=== PATIENT | female | born 1970 | race Caucasian/White ===

== ENCOUNTER 2025-06-03 02:07 | Emergency (ER) | payer MEDICAID, SELFPAY ==
[2025-06-03] VITALS (7 sets, daily range): BP systolic 104–149; BP diastolic 68–97; PULSE 90–101; RESP 17–18; TEMP 36.3–36.9; O2SAT 96–98; BMI 35.0
--- NOTE | 2025-06-03 02:19 | EKG_ITS ---
[facility] Test Date: 2025-06-03 Pat Name: CHILO BECKMAN Department: Room: - Gender: Female Senior Quality Manager: : 1970 Requested By: ED Temporary Provider Order Number: [id number] Reading MD: ED Temporary Provider Measurements Intervals [place] Rate: 93 P: 53 MI: 161 QRS: -17 QRSD: 90 T: 35 QT: 336 QTc: 419 Interpretive Statements SINUS RHYTHM MINIMAL ST DEPRESSION [0.025+ mV ST DEPRESSION] Compared to ECG 11/10/2019 09:25:52 ST (T wave) deviation now present /store/S0/[id number].pdf
--- NOTE | 2025-06-03 02:33 | PC.NURSE ---
PT STARTED TO RAISE VOICE AT RN FOR NOT GETTING THE IV QUICK ENOUGH. RN STATED SHE WAS LOOKING AND TRYING TO FEEL FOR A VEIN. PT STARTED TO RAISE VOICE TO RN THAT IT WOULDVE BEEN ALREADY. THIS RN STATES THAT SHE WAS STILL LOOKING. PT STATED DONT GIVE ME AN ATTITUDE . THIS RN CLARIFED THAT SHE WAS NOT GIVING THE PT AN ATTITUDE. PT PROCEED TO ASK FOR RN NAME. THIS RN GAVE PT HER NAME. IV WAS INSTERED
--- NOTE | 2025-06-03 02:37 | XR_ITS ---
Examination: AP chest single view Technique one AP portable semiupright chest single view Date and time: June 03, 2025, 0244 hours INDICATIONS: Shortness of breath chest pain beginning today. FINDINGS: Normal heart size The lungs are clear. The osseous structures are intact IMPRESSION: No active disease
[2025-06-03 03:02] LABS: Basophils # (Auto) 0.1 Thou/mm3 (0.0-0.2); Basophils % (Auto) 1 % (0-2.5); Eosinophils # (Auto) 0.3 Thou/mm3 (0.0-0.5); Eosinophils % (Auto) 5 % (0-10); Hematocrit 40.4 % (36.0-46.0); Hemoglobin 13.6 g/dL (12.0-16.0); Immature Granulocytes Auto 0.03 Thou/mm3 (0.00-0.00); Lymphocytes # (Auto) 2.0 Thou/mm3 (1.0-4.8); Lymphocytes % (Auto) 29 % (10-50); Mean Corpuscular HGB Conc 33.7 g/dl (31.0-37.0); Mean Corpuscular Hemoglobin 30.7 pg (25.0-35.0); Mean Corpuscular Volume 91 fL (80-100); Monocytes # (Auto) 0.7 Thou/mm3 (0.0-0.8); Monocytes % (Auto) 10 % (0-12); Neutrophils # (Auto) 3.9 Thou/mm3 (1.8-7.7); Neutrophils % (Auto) 55 % (37-80); Nucleated Red Blood Cell # 0.00 Thou/mm3 (0.00-0.00); Nucleated Red Blood Cell % 0 /100 WBC (0); Platelet Count 339 Thou/mm3 (140-440); RDW Standard Deviation 41.9 fL (36.4-46.3); Red Blood Count 4.43 Miln/mm3 (4.00-5.20); White Blood Count 7.1 Thou/mm3 (3.6-11.0)
[2025-06-03 03:24] LABS: Alanine Aminotransferase < 7 U/L (10-49); Albumin, Serum 4.0 gm/dL (3.5-5.0); Albumin/Globulin Ratio 1.4 (1.2-2.2); Alkaline Phosphatase 106 U/L (46-116); Anion Gap 8 (7-16); Aspartate Amino Transferase 20 U/L (0-34); BUN/Creatinine Ratio 16 Ratio (12-20); Bilirubin,Total 0.3 mg/dL (0.3-1.2); Blood Urea Nitrogen 13 mg/dL (9-23); Calcium 9.6 mg/dL (8.3-10.6); Calcium (Corrected) 9.6 mg/dL (8.5-10.1); Carbon Dioxide 29.3 mMol/L (20.0-31.0); Chloride 102 mMol/L (98-107); Creatinine (Component) 0.8 mg/dL (0.6-1.3); Estimated Creatinine Clearance 85.5 mL/min (>60); Globulin 2.9 gm/dL (2.3-3.5); Glucose 87 mg/dL (74-106); Osmolality,Calculated 276 (275-295); Potassium 4.8 mMol/L (3.4-5.1); Sodium 139 mMol/L (136-145); Total Protein 6.9 gm/dL (5.7-8.2); Troponin I < 0.002 ng/mL (0.0-0.045); eGFR > 60 See Note
[2025-06-03 04:20] LABS: B-Type Natriuretic Peptide < 20 pg/mL (0-100)
[2025-06-03 06:41] LABS: Collection Type, Urine Clean Catch
[2025-06-03 06:53] LABS: Bacteria,Urine Rare; Bilirubin,Urine Negative (Negative); Blood,Urine Negative (Negative); Clarity,Urine Turbid (Clear/Hazy); Color,Urine Yellow (Lt Yel-Yel); Glucose, Urine Negative (Negative); Ketones,Urine Negative (Negative); Leukocyte Esterase,Urine Positive (Negative); Nitrite,Urine Negative (Negative); PH,Urine 6.5 (5.0-7.0); Protein,Urine Negative (Neg - Trace); RBC,Urine 6 /hpf (0-3); Specific Gravity,Urine 1.020 (1.001-1.035); Squamous Epithelial Cell,Urine 1 /hpf (0-5); Urobilinogen,Urine Negative mg/dL (0.0-1.0); WBC,Urine 128 /hpf (0-5)
--- NOTE | 2025-06-03 07:00 | XR_ITS ---
Examination: CT brain head without contrast. 2-D sagittal coronal reconstructions Date and time of exam:June 03, 2025, 0724 hours INDICATIONS: Syncopal episodes and weakness today CTDI: vol (mGy):6.4 DLP: (mGycm):958 Technique: Multiple CT axial sections of the brain have been obtained, 5 mm slice thickness. Contrast has not been administered. 2-D sagittal, coronal reconstructions have been obtained Low dose protocols were performed. One or more of the following dose reduction techniques were used; automated exposure control, adjustment of the mA and/or KV according to patient size, use of iterative reconstruction technique. Findings: Patient motion degrades scan image quality No significant ventricular enlargement. Intra-axial or extra-axial hemorrhage density is not seen. No mass effect or midline shift Basal cisterns are not remarkable. Fourth ventricle is midline. Cranial vault intact. Impression: Limited study, patient motion No hemorrhage mass effect or midline shift noted
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
== END 2025-06-03 15:01 | disposition skilled nursing facility (03) ==
PROVIDERS: Emergency Medicine; Emergency Provider Family Medicine
DX: R55 Syncope and collapse (principal); R53.1 Weakness; R06.02 Shortness of breath; R07.9 Chest pain, unspecified; R94.31 Abnormal electrocardiogram [ECG] [EKG]
CPT/HCPCS: 36415; 70450; 71045; 80053; 81001; 82607; 82652; 83880; 84484; 85025; 87086; 93005; 99284